=== PATIENT | female | born 1975 | race Caucasian/White ===

== ENCOUNTER 2016-11-21 22:18 | Emergency (ER) | payer SELFPAY ==
[2016-11-21 23:24] VITALS: BMI 33.5
[2016-11-21 23:41] VITALS: TEMP 98.1; O2SAT 100
--- NOTE | 2016-11-21 23:52 | ED PDOC ---
Arrival/HPI - General Historian: Patient - General Chief Complaint: Female Genitourinary Time Seen by Provider: 11/21/16 23:39 - History of Present Illness Narrative History of Present Illness (Text): 11/21/16 23:49 41yo female with no PMHx in ED for 4days history of urinary symptoms and dysuria. She denies abdominal pain, hematuria, fever, chills, back pain, nausea , vomiting, any other complaint. (Sonido Urbina) Past Medical History - Provider Review Nursing Documentation Reviewed: Yes - Infectious Disease Hx of Infectious Diseases: None - Tetanus Immunization Tetanus Immunization: Unknown - Past Medical History Past Medical History: No Previous - Cardiac Hx Cardiac Disorders: No - Pulmonary Hx Respiratory Disorders: No - Neurological Hx Neurological Disorder: Yes Hx Dizziness: Yes - HEENT Hx HEENT Disorder: No - Renal Hx Renal Disorder: No - Endocrine/Metabolic Hx Endocrine Disorders: No - Hematological/Oncological Hx Blood Disorders: No - Integumentary Hx Dermatological Disorder: No - Musculoskeletal/Rheumatological Hx Musculoskeletal Disorders: No - Gastrointestinal Hx Gastrointestinal Disorders: Yes Other/Comment: appendicitis - Genitourinary/Gynecological Hx Genitourinary Disorders: No - Psychiatric Hx Psychophysiologic Disorder: No Hx Substance Use: No - Past Surgical History Past Surgical History: No Previous - Surgical History Hx Appendectomy: Yes - Anesthesia Hx Anesthesia: Yes Hx Anesthesia Reactions: No Hx Malignant Hyperthermia: No - Suicidal Assessment Feels Threatened In Home Enviroment: No Family/Social History - Physician Review Nursing Documentation Reviewed: Yes Family/Social History: Unknown Family HX Smoking Status: Never Smoked Hx Alcohol Use: No Hx Substance Use: No Hx Substance Use Treatment: No Allergies/Home Meds Allergies/Adverse Reactions: Allergies No Known Allergies Allergy (Verified 11/21/16 23:28) Review of Systems - Physician Review All systems were reviewed & negative as marked: Yes - Review of Systems Constitutional: Normal Eyes: Normal ENT: Normal Respiratory: Normal Cardiovascular: Normal Gastrointestinal: Normal Genitourinary Female: Dysuria, Frequency. absent: Hematuria Musculoskeletal: Normal Skin: Normal Neurological: Normal Endocrine: Normal Hemo/Lymphatic: Normal Psychiatric: Normal Physical Exam Vital Signs Reviewed: Yes Temperature: Afebrile Blood Pressure: Normal Pulse: Regular Respiratory Rate: Normal Appearance: Positive for: Well-Appearing, Non-Toxic, Comfortable Pain Distress: None Mental Status: Positive for: Alert and Oriented X 3 - Systems Exam Head: Present: Atraumatic, Normocephalic Pupils: Present: PERRL Extroacular Muscles: Present: EOMI Conjunctiva: Present: Normal Mouth: Present: Moist Mucous Membranes Neck: Present: Normal Range of Motion Respiratory/Chest: Present: Clear to Auscultation, Good Air Exchange. No: Respiratory Distress, Accessory Muscle Use Cardiovascular: Present: Regular Rate and Rhythm, Normal S1, S2. No: Murmurs Abdomen: Present: Normal Bowel Sounds. No: Tenderness, Distention, Peritoneal Signs, Rebound, Guarding, McBurney's Point Tender, Rovsing's Sign Present Back: Present: Normal Inspection. No: CVA Tenderness Upper Extremity: Present: Normal Inspection. No: Cyanosis, Edema Lower Extremity: Present: Normal Inspection. No: Edema Neurological: Present: GCS=15, CN II-XII Intact, Speech Normal Skin: Present: Warm, Dry, Normal Color. No: Rashes Psychiatric: Present: Alert, Oriented x 3, Normal Insight, Normal Concentration Medical Decision Making ED Course and Treatment: 11/22/16 02:52 Pt in ED for stated history. she was afebrile. Had no CVAT. UA was negative. she was tx with pyridium for dysuria. Result was DW the pt and she was referred to a urologist. TRT ED for any new or worsening symptoms. (Sonido Urbina) - Lab Interpretations Lab Results: Lab Results 11/21/16 23:35: Urine Color yellow, Urine Appearance Clear, Urine pH 6.0, Ur Specific [place] 1.010, Urine Protein Negative, Urine Glucose (UA) Negative, Urine Ketones Negative, Urine Blood Negative, Urine Nitrate Negative, Urine Bilirubin Negative, Urine Urobilinogen 1.0 H, Ur Leukocyte Esterase Negative - Medication Orders Current Medication Orders: Discontinued Medications Phenazopyridine HCl (Pyridium) 200 mg PO STAT STA Stop: 11/22/16 00:07 Last Admin: 11/22/16 00:19 Dose: 200 mg Disposition/Present on Arrival - Present on Arrival Any Indicators Present on Arrival: No History of DVT/PE: No History of Uncontrolled Diabetes: No Urinary Catheter: No History of Decub. Ulcer: No History Surgical Site Infection Following: None - Disposition Have Diagnosis and Disposition been Completed?: Yes Disposition Time: 00:10 Patient Plan: Discharge - Disposition Diagnosis: Dysuria Disposition: HOME/ ROUTINE Condition: STABLE Discharge Instructions (ExitCare): Dysuria (ED) Additional Instructions: Follow up with a [employer]/Urologist Return to ED for any new or worsening symptoms Prescriptions: Phenazopyridine [Phenazopyridine HCl] 200 mg PO TID #6 tab Referrals: Cruz Almanzar MD [Staff Provider] - Follow up with primary [facility] [place] - Follow up with primary
[2016-11-21 23:54] LABS: URINE BILIRUBIN NEGATIVE (NEGATIVE); URINE BLOOD NEGATIVE (NEGATIVE); URINE GLUCOSE (UA) NEGATIVE (NEGATIVE); URINE KETONE NEGATIVE (NEGATIVE); URINE PROTEIN NEGATIVE mg/dL (<30 mg/dL)
[2016-11-21 23:55] LABS: URINE APPEARANCE CLEAR (CLEAR); URINE LEUKOCYTE ESTERASE NEGATIVE Leu/uL (NEGATIVE)
[2016-11-22 00:25] VITALS: BP 138/54; PULSE 62; RESP 16
== END 2016-11-22 00:25 | disposition home or self-care (01) ==
LOC: ED 22:18
DX: R30.0 Dysuria (principal)

== ENCOUNTER 2016-12-15 12:52 | Emergency (ER) | payer OTHER ==
[2016-12-15 13:01] VITALS: TEMP 97.8; O2SAT 100; BMI 32.3
[2016-12-15] MEDS ORDERED: Sodium Chloride 0.9% 1,000 ML IV STA (13:10)
--- NOTE | 2016-12-15 13:35 | ED PDOC ---
Arrival/HPI - General Chief Complaint: Abdominal Pain Time Seen by Provider: 12/15/16 13:05 Historian: Patient - History of Present Illness Narrative History of Present Illness (Text): 12/15/16 13:32 41 year old female presents to the emergency department complaining of diffuse lower abdominal pain that began about an hour prior to arrival. Denies nausea, vomiting, diarrhea, constipation, appetite changes, or fevers. Time/Duration: 1/2 hour Symptom Onset: Sudden Symptom Course: Unchanged Associated Symptoms (Text): None Past Medical History - Provider Review Nursing Documentation Reviewed: Yes - Infectious Disease Hx of Infectious Diseases: None - Tetanus Immunization Tetanus Immunization: Unknown - Past Medical History Past Medical History: No Previous - Cardiac Hx Cardiac Disorders: No - Pulmonary Hx Respiratory Disorders: No - Neurological Hx Neurological Disorder: Yes Hx Dizziness: Yes - HEENT Hx HEENT Disorder: No - Renal Hx Renal Disorder: No - Endocrine/Metabolic Hx Endocrine Disorders: No - Hematological/Oncological Hx Blood Disorders: No - Integumentary Hx Dermatological Disorder: No - Musculoskeletal/Rheumatological Hx Musculoskeletal Disorders: No - Gastrointestinal Hx Gastrointestinal Disorders: Yes Hx Gall Bladder Disease: Yes - Genitourinary/Gynecological Hx Genitourinary Disorders: No - Psychiatric Hx Psychophysiologic Disorder: No Hx Substance Use: No - Past Surgical History Past Surgical History: No Previous - Surgical History Hx Cholecystectomy: Yes - Anesthesia Hx Anesthesia: Yes Hx Anesthesia Reactions: No Hx Malignant Hyperthermia: No - Suicidal Assessment Feels Threatened In Home Enviroment: No Family/Social History - Physician Review Nursing Documentation Reviewed: Yes Family/Social History: Unknown Family HX Smoking Status: Never Smoked Hx Alcohol Use: No Hx Substance Use: No Hx Substance Use Treatment: No Allergies/Home Meds Allergies/Adverse Reactions: Allergies No Known Allergies Allergy (Verified 12/15/16 13:01) Home Medications: Home Meds Medication Instructions Recorded Confirmed Ciprofloxacin [Cipro] 1 tab PO BID 12/15/16 12/15/16 Sulfamethoxazole/Trimethoprim 1 tab PO DAILY 12/15/16 12/15/16 [Bactrim DS Tab] Review of Systems - Physician Review All systems were reviewed & negative as marked: Yes - Review of Systems Constitutional: absent: Fevers Respiratory: absent: SOB Gastrointestinal: Abdominal Pain. absent: Constipation, Diarrhea, Nausea, Vomiting, Appetite Changes Physical Exam Vital Signs Reviewed: Yes Vital Signs Temp Pulse Resp BP Pulse Ox 12/15/16 16:32 61 18 118/69 100 12/15/16 15:06 66 18 116/65 100 12/15/16 14:05 64 18 112/68 100 12/15/16 13:00 97.8 F 67 19 114/75 100 Temperature: Afebrile Blood Pressure: Normal Pulse: Regular Respiratory Rate: Normal Appearance: Positive for: Well-Appearing, Non-Toxic Pain Distress: Mild Mental Status: Positive for: Alert and Oriented X 3 - Systems Exam Head: Present: Atraumatic, Normocephalic Pupils: Present: PERRL Extroacular Muscles: Present: EOMI Conjunctiva: Present: Normal Mouth: Present: Moist Mucous Membranes Neck: Present: Normal Range of Motion Respiratory/Chest: Present: Clear to Auscultation, Good Air Exchange. No: Respiratory Distress, Accessory Muscle Use Cardiovascular: Present: Regular Rate and Rhythm, Normal S1, S2. No: Murmurs Abdomen: Present: Tenderness (Diffuse), Normal Bowel Sounds. No: Distention, Peritoneal Signs Back: Present: Normal Inspection Upper Extremity: Present: Normal Inspection. No: Cyanosis, Edema Lower Extremity: Present: Normal Inspection. No: Edema Neurological: Present: GCS=15, CN II-XII Intact, Speech Normal Skin: Present: Warm, Dry, Normal Color. No: Rashes Psychiatric: Present: Alert, Oriented x 3, Normal Insight, Normal Concentration Medical Decision Making ED Course and Treatment: Impression: 41 year old female presents to the emergency department complaining of diffuse abdominal pain and nausea that began about 20 minutes prior to arrival. Plan: -- Labs -- Reassess and disposition Prior Visits: Notes and results from previous visits were reviewed. Patient last seen in ED on 11/21/16 for dysuria and discharged home. Progress Notes: - Lab Interpretations Lab Results: 12/15/16 13:31 12/15/16 13:31 Lab Results 12/15/16 14:50: Urine Color Yellow, Urine Appearance Clear, Urine pH 6.0, Ur Specific [place] 1.020, Urine Protein Negative, Urine Glucose (UA) Negative, Urine Ketones Negative, Urine Blood Negative, Urine Nitrate Negative, Urine Bilirubin Negative, Urine Urobilinogen 0.2, Ur Leukocyte Esterase Negative 12/15/16 13:31: Sodium 137, Potassium 4.2, Chloride 102, Carbon Dioxide 28, Anion Gap 11, BUN 7, Creatinine 0.5, Est GFR ( Amer) > 60, Est GFR (Non- Af Amer) > 60, Random Glucose 114 H, Calcium 9.3, Total Bilirubin 0.4, AST 62 H , ALT 59 H, Alkaline Phosphatase 60, Total Protein 6.6, Albumin 3.8, Globulin 2.8, Albumin/Globulin Ratio 1.4, Lipase 32 12/15/16 13:31: WBC 3.1 L D, RBC 4.26, Hgb 12.6, Hct 37.6, MCV 88.3, MCH 29.6, MCHC 33.5, RDW 13.0, Plt Count 239, MPV 9.3, Gran % 37.7 L, Lymph % (Auto) 57.5 H, [place] % (Auto) 2.9, Eos % (Auto) 1.6, Baso % (Auto) 0.3, Gran # 1.15 L, Lymph # 1.8, [place] # 0.1, Eos # 0.1, Baso # 0.01 - RAD Interpretation Radiology Orders: 12/15/16 13:45 ABDOMEN & PELVIS [ABD PELVIS PO & IV CONTRAST] [CT] Stat - Medication Orders Current Medication Orders: Discontinued Medications Famotidine (Pepcid) 20 mg IVP STAT STA Stop: 12/15/16 13:11 Last Admin: 12/15/16 13:34 Dose: 20 mg Sodium Chloride (Sodium Chloride 0.9%) 1,000 mls @ 1,000 mls/hr IV .Q1H STA Stop: 12/15/16 14:09 Last Admin: 12/15/16 13:34 Dose: 1,000 mls/hr Iohexol (Omnipaque 240 (50 Ml)) Confirm Administered Dose 50 ml .ROUTE .STK-MED ONE Stop: 12/15/16 13:50 Iohexol (Omnipaque 350 100 Ml) Confirm Administered Dose 350 mg .ROUTE .STK-MED ONE Stop: 12/15/16 14:03 Ondansetron HCl (Zofran Inj) 4 mg IVP STAT STA Stop: 12/15/16 13:11 Last Admin: 12/15/16 13:34 Dose: 4 mg - Scribe Statement The provider has reviewed the documentation as recorded by the Mariya Fisher Provider Scribe Attestation: All medical record entries made by the Scribe were at my direction and personally dictated by me. I have reviewed the chart and agree that the record accurately reflects my personal performance of the history, physical exam, medical decision making, and the department course for this patient. I have also personally directed, reviewed, and agree with the discharge instructions and disposition. Disposition/Present on Arrival - Present on Arrival Any Indicators Present on Arrival: No History of DVT/PE: No History of Uncontrolled Diabetes: No Urinary Catheter: No History of Decub. Ulcer: No History Surgical Site Infection Following: None - Disposition Have Diagnosis and Disposition been Completed?: Yes Diagnosis: Abdominal pain Disposition: HOME/ ROUTINE Disposition Time: 17:00 Condition: IMPROVED Discharge Instructions (ExitCare): Acute Abdominal Pain (ED) Additional Instructions: Thank you for letting us take care of you today. Your provider was Dr. Herzog. You were treated for abdominal pain. The emergency medical care you received today was directed at your acute symptoms. If you were prescribed any medication, please fill it and take as directed. It may take several days for your symptoms to resolve. Return to the Emergency Department if your symptoms worsen, do not improve, or if you have any other problems. Please contact your doctor or call one of the physicians/clinics you have been referred to that are listed on the Patient Visit Information form that is included in your discharge packet. Bring any paperwork you were given at discharge with you along with any medications you are taking to your follow up visit. Our treatment cannot replace ongoing medical care by a primary care provider (PCP) outside of the emergency department. Thank you for allowing the [facility] team to be part of your care today. Follow up with your doctor in 2-3 days for re-evaluation. Continue taking the antibiotics that your were already prescribed. Prescriptions: Ranitidine HCl [Zantac] 150 mg PO BID #20 tablet Referrals: Everette Corrales, [Primary Care Provider] - Follow up with primary
[2016-12-15 13:39] LABS: BASO # 0.01 K/mm3 (0.0-2.0); BASO % 0.3 % (0.0-3.0); EOS # 0.1 (0.0-0.7); EOS % 1.6 % (1.5-5.0); GRAN # 1.15 (1.4-6.5); GRAN % 37.7 % (50.0-68.0); HEMOGLOBIN 12.6 gm/dL (12.0-16.0); LYMPH # 1.8 (1.2-3.4); LYMPH % 57.5 % (22.0-35.0); MEAN CELL VOLUME 88.3 fL (80.0-105.0); MEAN CORPUSCULAR HEMOGLOBIN 29.6 pg (25.0-35.0); MEAN CORPUSCULAR HGB CONC 33.5 g/dl (31.0-37.0); MEAN PLATELET VOLUME 9.3 fl (7.0-11.0); MONO # 0.1 (0.1-0.6); MONO % 2.9 % (1.0-6.0); PLATELET COUNT 239 10^3/uL (120.0-450.0); RBC 4.26 10^6/uL (3.5-6.1); WHITE BLOOD COUNT 3.1 10^3/ul (4.5-11.0)
[2016-12-15 13:48] LABS: ALB/GLOB RATIO 1.4 (1.1-1.8); ALBUMIN 3.8 g/dL (3.0-4.8); ALT/SGPT 59 U/L (7-56); AST/SGOT 62 U/L (15-39); BLOOD UREA NITROGEN 7 mg/dL (7-21); CALCIUM 9.3 mg/dL (8.4-10.5); GFR AFRICAN-AMERICAN > 60; GFR NON-AFRICAN AMERICAN > 60; LIPASE 32 U/L (23-300)
[2016-12-15] MEDS ORDERED: Iohexol 240 (50 ml) ONE (13:49)
[2016-12-15] MEDS ORDERED: Iohexol 350 MG/100 ML VIAL ONE (14:02)
[2016-12-15 14:06] VITALS: RESP 18
[2016-12-15 15:07] LABS: URINE BILIRUBIN NEGATIVE (NEGATIVE); URINE BLOOD NEGATIVE (NEGATIVE); URINE GLUCOSE (UA) NEGATIVE (NEGATIVE); URINE LEUKOCYTE ESTERASE NEGATIVE Leu/uL (NEGATIVE); URINE NITRATE NEGATIVE (NEGATIVE); URINE PROTEIN NEGATIVE mg/dL (<30 mg/dL); URINE UROBILINOGEN 0.2 E.U./dL (<1 E.U./dL)
[2016-12-15 15:09] LABS: URINE APPEARANCE CLEAR (CLEAR); URINE COLOR YELLOW (YELLOW)
[2016-12-15 16:32] VITALS: BP 118/69; PULSE 61
--- NOTE | 2016-12-15 16:53 | CT ---
PROCEDURE: CT Abdomen and Pelvis with contrast HISTORY: Lower abdominal pain. By history, negative test (concurrent with this examination). COMPARISON: None. TECHNIQUE: Contrast dose: 100 cc Omnipaque 350 Radiation dose: Total exam DLP = 1147.68 mGy-cm. This CT exam was performed using one or more of the following dose reduction techniques: Automated exposure control, adjustment of the mA and/or kV according to patient size, and/or use of iterative reconstruction technique. FINDINGS: LOWER THORAX: Unremarkable. LIVER: Hepatic steatosis. No focal masses. No intrahepatic bile duct dilatation or perihepatic ascites. GALLBLADDER AND BILE DUCTS: Status post cholecystectomy. No abnormality is seen in the gallbladder fossa. PANCREAS: Unremarkable. No gross lesion or ductal dilatation. SPLEEN: Trace subcapsular fluid. Maximum thickness 5 mm. Focal dystrophic calcifications about the rim of the spleen. These findings may reflect the sequela of prior trauma. In the absence of acute trauma the findings are not felt to be clinically consequential/relevant. ADRENALS: Unremarkable. No mass. KIDNEYS AND URETERS: Unremarkable. No hydronephrosis. No solid mass. VASCULATURE: Unremarkable. No aortic aneurysm. BOWEL: Unremarkable. No obstruction. No gross mural thickening. APPENDIX: Normal appendix. PERITONEUM: Unremarkable. No free fluid. No free air. LYMPH NODES: Unremarkable. No enlarged lymph nodes. BLADDER: Unremarkable. REPRODUCTIVE: Unremarkable. Intrauterine contraceptive device (IUD) identified centrally within the uterus. Probable cyst within the left adnexa/ovary. BONES: No acute fracture. OTHER FINDINGS: None. IMPRESSION: No acute findings related to/accounting for the clinical presentation. Additional benign and/or incidental findings described above. This includes trace subcapsular splenic fluid. Please see report for details.
== END 2016-12-15 17:22 | disposition home or self-care (01) ==
LOC: ED 12:52
DX: R10.9 Unspecified abdominal pain (principal); Z90.49 Acquired absence of other specified parts of digestive tract
CPT/HCPCS: 74177; 80053; 81003; 83690; 85025; 96361; 96374; 96375; 99285; J2405; J7040; Q9966; Q9967

== ENCOUNTER 2016-12-29 19:25 | Emergency (ER) | payer OTHER ==
[2016-12-29 19:52] VITALS: BMI 40.9
[2016-12-29 19:56] VITALS: TEMP 98.1
[2016-12-29] MEDS ORDERED: DiphenhydrAMINE 50 mg/ml Inj IVP ONE (20:38)
[2016-12-29] MEDS ORDERED: Sodium Chloride 0.9% 1,000 ML IV SCH (20:45)
--- NOTE | 2016-12-29 21:04 | ED PDOC ---
Arrival/HPI - General Chief Complaint: Headache Time Seen by Provider: 12/29/16 20:16 Historian: Patient - History of Present Illness Narrative History of Present Illness (Text): 12/29/16 20:34 Nae Smallwood is a 41 year old female, with no significant past medical history, who presents to the ED complaining headache discomfort to front and top of head. Patient also reports some occasional paresthesias to right upper and lower extremity. Patient appears anxious. Patient denies any fever, chills, chest pain, shortness of breath, neck pain, back pain, recent trauma, or any other complaints. Symptom Onset: Gradual Symptom Course: Unchanged Activities at Onset: Rest, Light Context: Home Past Medical History - Provider Review Nursing Documentation Reviewed: Yes - Infectious Disease Hx of Infectious Diseases: None - Tetanus Immunization Tetanus Immunization: Unknown - Past Medical History Past Medical History: No Previous - Cardiac Hx Cardiac Disorders: No - Pulmonary Hx Respiratory Disorders: No - Neurological Hx Neurological Disorder: Yes Hx Dizziness: Yes - HEENT Hx HEENT Disorder: No - Renal Hx Renal Disorder: No - Endocrine/Metabolic Hx Endocrine Disorders: No - Hematological/Oncological Hx Blood Disorders: No - Integumentary Hx Dermatological Disorder: No - Musculoskeletal/Rheumatological Hx Musculoskeletal Disorders: No - Gastrointestinal Hx Gastrointestinal Disorders: Yes Hx Gall Bladder Disease: Yes - Genitourinary/Gynecological Hx Genitourinary Disorders: No - Psychiatric Hx Psychophysiologic Disorder: No Hx Substance Use: No - Past Surgical History Past Surgical History: No Previous - Surgical History Hx Cholecystectomy: Yes - Anesthesia Hx Anesthesia: Yes Hx Anesthesia Reactions: No Hx Malignant Hyperthermia: No - Suicidal Assessment Feels Threatened In Home Enviroment: No Family/Social History - Physician Review Nursing Documentation Reviewed: Yes Family/Social History: Unknown Family HX Smoking Status: Never Smoked Hx Alcohol Use: No Hx Substance Use: No Hx Substance Use Treatment: No Allergies/Home Meds Allergies/Adverse Reactions: Allergies No Known Allergies Allergy (Verified 12/15/16 13:01) Home Medications: Home Meds Medication Instructions Recorded Confirmed No Known Home Med 12/29/16 12/29/16 Review of Systems - Physician Review All systems were reviewed & negative as marked: Yes - Review of Systems Constitutional: Normal. absent: Fevers Eyes: Normal ENT: Normal Respiratory: Normal. absent: SOB, Cough Cardiovascular: Normal. absent: Chest Pain Gastrointestinal: Normal. absent: Abdominal Pain, Diarrhea, Nausea, Vomiting Genitourinary Female: Normal Musculoskeletal: Normal Skin: Normal Neurological: Headache. absent: Dizziness Endocrine: Normal Hemo/Lymphatic: Normal Psychiatric: Normal Physical Exam Vital Signs Reviewed: Yes Vital Signs Temp Pulse Resp BP Pulse Ox 12/29/16 23:01 76 16 110/67 99 12/29/16 19:55 98.1 F 61 18 107/76 98 Temperature: Afebrile Blood Pressure: Normal Pulse: Regular Respiratory Rate: Normal Appearance: Positive for: Well-Appearing, Non-Toxic, Comfortable Pain Distress: None Mental Status: Positive for: Alert and Oriented X 3 - Systems Exam Head: Present: Atraumatic, Normocephalic Pupils: Present: PERRL Extroacular Muscles: Present: EOMI Conjunctiva: Present: Normal Ears: Present: Normal, NORMAL TM, Normal Canal. No: Erythema, TM Bulging, Fluid , TM Perf Mouth: Present: Moist Mucous Membranes Pharnyx: Present: Normal. No: ERYTHEMA, EXUDATE, TONSILS ENLARGED, Peritonsilar Swelling, Uvular Deviation, Muffled/Hoarse Voice, Strider, Soft Palate/Uvular Edema Neck: Present: Normal Range of Motion. No: Meningeal Signs, MIDLINE TENDERNESS , Paraspinal Tenderness Respiratory/Chest: Present: Clear to Auscultation, Good Air Exchange. No: Respiratory Distress, Accessory Muscle Use Cardiovascular: Present: Regular Rate and Rhythm, Normal S1, S2. No: Murmurs Abdomen: Present: Normal Bowel Sounds. No: Tenderness, Distention, Peritoneal Signs Back: Present: Normal Inspection. No: CVA Tenderness, Midline Tenderness, Paraspinal Tenderness Upper Extremity: Present: Normal Inspection, Normal ROM, NORMAL PULSES, Neurovascularly Intact, Capillary Refill < 2s. No: Cyanosis, Edema, Tenderness , Swelling, Erythema, Temperature Abnormalties, Deformity Lower Extremity: Present: Normal Inspection, NORMAL PULSES, Normal ROM, Neurovascularly Intact, Capillary Refill < 2 s. No: Edema, CALF TENDERNESS, Cyanosis, Dada's Sign, Tenderness, Swelling, Erythema, Deformity, Temperature Abnormalties Neurological: Present: GCS=15, CN II-XII Intact, Speech Normal, Motor Func Grossly Intact, Normal Sensory Function, Normal Cerebellar Funct, Gait Normal, Memory Normal Skin: Present: Warm, Dry, Normal Color. No: Rashes Psychiatric: Present: Alert, Oriented x 3, Normal Insight, Normal Concentration , Anxious Medical Decision Making ED Course and Treatment: 12/29/16 20:34 Impression: 41 year old female c/o frontal headache and occasional right upper/lower extremity paresthesias. Differential Diagnosis included but are not limited to: migraines vs. anxiety Plan: -- CT Head w/o contrast -- EKG -- Labs -- IV fluids -- Reglan -- Benadryl -- Reassess and disposition Prior Visits: Notes and results from previous visits were reviewed. On 12/15/2016, pt was seen in the ED for lower abdominal pain. Pt was d/c home. Progress Notes: 12/29/16 23:40 Pt states she feels better, headache has resolved. Pt refusing CT scan. Pt was advised on the risks of leaving without further evaluation/imaging studies. Pt will sign out AMA. This patient is choosing to leave against medical advice. I have personally explained to the patient that choosing to do so may result in permanent bodily harm or . I have discussed at great length that without further evaluation and monitoring there may be unforeseen circumstances and/or deterioration causing permanent bodily harm or as a result of their choice. The patient is alert, oriented, and shows the mental capacity to make clear decisions regarding the patients health care at this time. The patient continues to wish to leave against medical advice. - Lab Interpretations Lab Results: 12/29/16 21:00 12/29/16 21:00 Lab Results 12/29/16 21:00: Sodium 135, Potassium 4.2, Chloride 102, Carbon Dioxide 25, Anion Gap 12, BUN 9, Creatinine 0.4 L, Est GFR ( Amer) > 60, Est GFR (Non -Af Amer) > 60, Random Glucose 91, Calcium 8.9, Total Bilirubin 0.4, AST 20, ALT 26, Alkaline Phosphatase 70, Total Protein 7.2, Albumin 4.1, Globulin 3.1, Albumin/Globulin Ratio 1.3 12/29/16 21:00: WBC 4.8 D, RBC 4.13, Hgb 12.1, Hct 35.4 L, MCV 85.7, MCH 29.3, MCHC 34.2, RDW 12.5, Plt Count 251, MPV 9.0 I have reviewed the lab results: Yes - Medication Orders Current Medication Orders: Discontinued Medications Diphenhydramine HCl (Benadryl) 25 mg IVP ONCE ONE Stop: 12/29/16 20:39 Last Admin: 12/29/16 21:28 Dose: 25 mg Home Med (*Refrigerator Open) Confirm Administered Dose 1 unit XX .STK-MED ONE Stop: 12/30/16 05:59 Sodium Chloride (Sodium Chloride 0.9%) 1,000 mls @ 100 mls/hr IV .Q10H ANNA MARIE Last Admin: 12/29/16 21:27 Dose: 100 mls/hr Metoclopramide HCl (Reglan) 10 mg IVP ONCE ONE Stop: 12/29/16 20:39 Last Admin: 12/29/16 21:28 Dose: 10 mg - Yamelibe Statement The provider has reviewed the documentation as recorded by the Mariya Crane All medical record entries made by the Yamelibgemini were at my direction and personally dictated by me. I have reviewed the chart and agree that the record accurately reflects my personal performance of the history, physical exam, medical decision making, and the department course for this patient. I have also personally directed, reviewed, and agree with the discharge instructions and disposition. Disposition/Present on Arrival - Present on Arrival Any Indicators Present on Arrival: No History of DVT/PE: No History of Uncontrolled Diabetes: No Urinary Catheter: No History of Decub. Ulcer: No History Surgical Site Infection Following: None - Disposition Have Diagnosis and Disposition been Completed?: Yes Diagnosis: Headache Disposition: AGAINST MEDICAL ADVICE Disposition Time: 23:40 Condition: STABLE Referrals: PCP,NO [Primary Care Provider] - Follow up with primary
[2016-12-29 21:15] LABS: HEMOGLOBIN 12.1 gm/dL (12.0-16.0); MEAN CELL VOLUME 85.7 fL (80.0-105.0); MEAN CORPUSCULAR HEMOGLOBIN 29.3 pg (25.0-35.0); MEAN CORPUSCULAR HGB CONC 34.2 g/dl (31.0-37.0); RBC 4.13 10^6/uL (3.5-6.1); RED CELL DISTRIBUTION WIDTH 12.5 % (11.5-14.5); WHITE BLOOD COUNT 4.8 10^3/ul (4.5-11.0)
[2016-12-29 21:28] LABS: ALB/GLOB RATIO 1.3 (1.1-1.8); ALBUMIN 4.1 g/dL (3.0-4.8); ALT/SGPT 26 U/L (7-56); AST/SGOT 20 U/L (15-39); BLOOD UREA NITROGEN 9 mg/dL (7-21); CALCIUM 8.9 mg/dL (8.4-10.5); GFR AFRICAN-AMERICAN > 60; GFR NON-AFRICAN AMERICAN > 60
[2016-12-29 23:02] VITALS: BP 110/67; PULSE 76; RESP 16; O2SAT 99
== END 2016-12-29 23:40 | disposition left against medical advice (07) ==
LOC: ED 19:25
DX: R51 Headache (principal)
CPT/HCPCS: 80053; 85027; 96374; 96375; 99285; J1200; J2765; J7040